=== PATIENT | female | born 1985 | race Caucasian/White ===

== ENCOUNTER → 2016-10-25 | Outpatient (CLI) | payer OTHER ==
[~2016-10-25] MED LIST: GADOBUTROL 10 ML VIAL IVP ONE
--- NOTE | 2016-10-25 18:34 | MR ---
MRI Abdomen, Without and With Contrast Indication: Indeterminate right adrenal gland nodule. Technique: Axial single shot fast spin echo, axial and coronal 2-D T2-weighted FIESTA, axial T1 dual echo, pre- and postcontrast dynamic T1 fat-suppressed LAVA imaging, and diffusion-weighted imaging i n the axial plane. 8 mL of Gadavist were uneventfully intravenously administered. Comparison: CT of the abdomen and pelvis dated January 25, 2016 Findings: The 1.8 x 1.4 cm round well-circumscribed right adrenal gland nodule homogeneously drops i n signal on the out of phase T1 sequence characteristic of a benign adrenal adenoma. The adenoma is u nchanged in size since January 2016. The left adrenal gland is normal. Three dependent hypointense gallstones have developed within the lumen of the gallbladder since January 17. No biliary dilation or common bile duct stone. The liver has normal signal and morphology. No he patic steatosis or focal liver lesion. The hepatic and portal venous system are patent. The normal-sized spleen, pancreas, kidneys, and bowel are normal. No hydronephrosis, free fluid, enla rged lymph node, or mass has developed. Posterior fusion hardware in the lumbar spine results in susc eptibility artifact. Bone marrow signal is normal. Impression: 1. Benign right adrenal gland adenoma is unchanged in size since January 2016. 2. New cholelithiasis. No choledocholithiasis, biliary obstruction or evidence of acute inflammation.
== END ==
LOC: FIMAGING 15:00
PROVIDERS: ATTEND Internal Medicine
DX: D35.01 Benign neoplasm of right adrenal gland (principal); K80.20 Calculus of gallbladder without cholecystitis without obstruction
CPT/HCPCS: 74183; A9585

== ENCOUNTER 2016-12-06 14:12 | Observation (INO) | payer OTHER ==
[2016-12-06] MEDS ORDERED: LIDOCAINE 1% 5 ML SDV ONE (14:52)
[2016-12-06] MEDS ORDERED: ceFAZolin 2 GM/DEXTROSE 100 ML IV ONE (15:00)
[2016-12-06 15:04] LABS: ADD DIFF? NO; ADD MORPH? NO
[2016-12-06] MEDS ORDERED: fentaNYL 100 MCG/2 ML INJ ONE ×5 (15:13→20:13)
[2016-12-06 15:14] LABS: ADD SCAN? NO
[2016-12-06 15:37] LABS: % IMMATURE GRANULYOCYTES 0.1 % (0.0-1.1); ABSOLUTE IMMATURE GRANULOCYTES 0.01 10^3/uL (0.00-0.10); ADD DIFF? NO; ADD MORPH? NO; ADD SCAN? NO; ATYPICAL LYMPHOCYTE FLAG 30 (0-99); FRAGMENT RBC FLAG 0 (0-99); HEMATOCRIT 41.7 % (38.0-47.0); LEFT SHIFT FLG 0 (0-99); LIPEMIA HEMOLYSIS FLAG 80 (0-99); MEAN CELL HEMOGLOBIN 29.4 pg (27.9-34.1); MEAN CELL HEMOGLOBIN CONCENTR. 33.6 g/dL (32.4-36.7); MEAN CELL VOLUME 87.4 fL (81.5-99.8); MEAN PLATELET VOLUME 11.5 fL (8.7-11.7); PLATELET CLUMPS FLAG 0 (0-99); PLATELET COUNT 231 10^3/uL (150-400); RED BLOOD CELL COUNT 4.77 10^6/uL (4.18-5.33); RED CELL DISTRIBUTION WIDTH 15.5 % (11.5-15.2)
[2016-12-06 16:05] LABS: ANION GAP 12 mEq/L (8-16); CALCIUM 9.3 mg/dL (8.5-10.4); CARBON DIOXIDE 21 mEq/l (22-31); CHLORIDE 108 mEq/L (97-110); CREATININE 0.8 mg/dL (0.6-1.0); GLOMERULAR FILTRATION RATE > 60; GLUCOSE 80 mg/dL (70-100); POTASSIUM 4.2 mEq/L (3.5-5.2); SODIUM 141 mEq/L (134-144)
[2016-12-06] MEDS ORDERED: BUPIVACAINE 0.5% 30 ML SDV ONE (16:43)
[2016-12-06] MEDS ORDERED: SKIN ADHESIVE (DERMABOND) 1 EACH TP ONE (16:43)
[2016-12-06] MEDS ORDERED: PREGABALIN 150 MG CAP ONE (17:34)
[2016-12-06] MEDS ORDERED: morphINE SR 30 MG TAB PO ONE (18:00)
[2016-12-06] MEDS ORDERED: PREGABALIN 150 MG CAP PO ONE (18:00)
[2016-12-06] MEDS ORDERED: PROPOFOL/EMULSION 500 MG/50 ML BOTTLE IV ONE (18:41)
[2016-12-06] MEDS ORDERED: MIDAZOLAM 2 MG/2 ML VIAL ONE (18:42)
[2016-12-06 19:01] LABS: ALBUMIN 3.8 g/dL (3.5-5.0); BILIRUBIN,TOTAL 0.7 mg/dL (0.1-1.4); BILIRUBIN-CONJUGATED 0.4 mg/dL (0.0-0.5); BILIRUBIN-UNCONJUGATED 0.3 mg/dL (0.0-1.1)
[2016-12-06] MEDS ORDERED: SUGAMMADEX SODIUM 200 MG/2 ML VIAL IVP ONE (19:48)
[2016-12-06] MEDS ORDERED: HYDROmorphONE/DILAUDID 2 MG/ML INJ ONE (19:51)
--- NOTE | 2016-12-06 20:04 | POSTOPPROG ---
Post Op Note Date of Operation: 12/06/16 Surgeon: Elena Nathan Anesthesiologist: rodri Anesthesia: GET(General Endotracheal) Pre-op Diagnosis: symptomatic cholelithiasis Post-op Diagnosis: same Indication: 31 yo with symptomatic cholelithiasis Procedure: lap nilson Findings: no unusual Inf/Abcess present in the surg proc area at time of surgery?: No EBL: Minimal Specimen(s): gallbladder
[2016-12-06] MEDS ORDERED: HYDROCODONE/APAP 5/325 TAB PO PRN (20:06)
[2016-12-06] MEDS ORDERED: ONDANSETRON 4 MG/2 ML VIAL IVP PRN (20:06)
[2016-12-06] MEDS ORDERED: ONDANSETRON 4 MG/2 ML VIAL ONE (20:09)
[2016-12-06] MEDS ORDERED: HYDROmorphONE/DILAUDID 1 MG/ML SYR ONE (20:13)
--- NOTE | 2016-12-06 20:14 | GOP ---
[f rep st] OPERATIVE REPORT DATE OF OPERATION: 12/06/2016 SURGEON: Elena Nathan MD ANESTHESIA: General. ANESTHESIOLOGIST: Godfrey Patrick MD. PREOPERATIVE DIAGNOSIS: Symptomatic cholelithiasis. POSTOPERATIVE DIAGNOSIS: Symptomatic cholelithiasis. PROCEDURE PERFORMED: Laparoscopic cholecystectomy. FINDINGS: Gallstones within her gallbladder. The common bile duct was visualized and protected. SPECIMENS: Gallbladder. ESTIMATED BLOOD LOSS: 20 cc. INDICATIONS: The patient is a 31-year-old woman who has lost weight. Eating has become progressive ly more difficult. She has new onset gallstones and is symptomatic. DESCRIPTION OF PROCEDURE: The patient was brought into the operating room, placed supine on the tab le, and general anesthesia was administered. Her abdomen was prepped and draped in the usual steril e fashion. I infiltrated all sites with 0.5% Marcaine prior to making incisions. I made an incisio n at her umbilicus. I elevated it. I inserted the Veress needle. It passed the hanging drop test. Her abdomen insufflated easily to a pressure of 15 mmHg. I placed a 5 mm trocar with a camera at this site. Under direct vision, I placed a 10 mm subxiphoid trocar and two 5 mm trocars along the r ight costal margin. I lifted her gallbladder cephalad and laterally to expose the triangle of Calot . I carefully skeletonized the cystic artery and cystic duct so that they were the only 2 structure s directly entering the gallbladder. They were each singly clipped toward the gallbladder, doubly c lipped distally, and transected with scissors. The gallbladder was removed from the gallbladder fos sa with electrocautery. The gallbladder was placed in an EndoCatch bag and retrieved via the 10 mm trocar. Hemostasis was achieved on the liver bed with electrocautery and Seble. The abdomen was i nspected. No injuries noted. The clips were in satisfactory position. The ports were removed unde r direct vision. The abdomen allowed to desufflate. The fascia at the 10 mm trocar site was closed with 0 Vicryl. Skin closed with 4-0 Monocryl. Dermabond applied. She was awakened in the operati ng room, extubated, transferred to PACU in stable condition. /[id number]/MODL
[2016-12-06] MEDS ORDERED: D5W 1/2 NS W/ 20 KCl/L 1,000 ML IV SCH (20:15)
[2016-12-06 20:44] VITALS: RESP 16
[2016-12-06] MEDS: KETOROLAC 15 MG/1 ML SDV IVP SCH (22:26)
[2016-12-07] MEDS: KETOROLAC 15 MG/1 ML SDV IVP SCH ×2 (05:25→13:26)
[2016-12-07 07:31] VITALS: BP 121/76; PULSE 65; TEMP 98.3; O2SAT 93
[2016-12-07] MEDS ORDERED: BACLOFEN 10 MG TAB PO PRN (08:53)
[2016-12-07] MEDS ORDERED: oxyCODONE IR 15 MG TAB PO PRN (08:53)
[2016-12-07] MEDS ORDERED: ONDANSETRON DISINTEGRATING 4 MG TAB PO PRN (08:53)
[2016-12-07] MEDS ORDERED: NORETHINDRONE ETHINYL ESTRAD PO SCH (09:00)
[2016-12-07] MEDS ORDERED: morphINE SR 30 MG TAB PO SCH (09:00)
[2016-12-07] MEDS ORDERED: PREGABALIN 150 MG CAP PO SCH (09:00)
[2016-12-08] MEDS ORDERED: NORETHINDRONE ETHINYL ESTRAD PO SCH (09:00)
== END 2016-12-07 13:20 | disposition home or self-care (01) ==
LOC: F3E 14:12 → FOB 20:51
PROVIDERS: ADMIT Surgery; ATTEND Surgery
PROC: 0FT44ZZ Resection of Gallbladder, Percutaneous Endoscopic Approach (ICD-10-PCS; principal; 2016-12-06 16:00)
DX: K80.10 Calculus of gallbladder with chronic cholecystitis without obstruction (principal); R63.4 Abnormal weight loss; F17.210 Nicotine dependence, cigarettes, uncomplicated; M54.5 Low back pain; G89.29 Other chronic pain; N30.00 Acute cystitis without hematuria
CPT/HCPCS: 47562; 88304; J0690; J1170; J1885; J2250; J2405; J2704; J3010

== ENCOUNTER → 2016-12-06 | Outpatient (CLI) | payer OTHER | LOC: FIMAGING 11:57 | PROVIDERS: ATTEND Surgery | DX: K80.20 Calculus of gallbladder without cholecystitis without obstruction (principal); E27.9 Disorder of adrenal gland, unspecified ==

== ENCOUNTER 2017-05-28 09:49 | Emergency (ER) | payer OTHER ==
[2017-05-28 10:14] VITALS: RESP 16
[2017-05-28] MEDS ORDERED: NS 1,000 ML IV ONE ×2 (10:15→14:29)
[2017-05-28 10:16] VITALS: TEMP 98.6
--- NOTE | 2017-05-28 10:24 | CPEKG ---
Heart Rate: 66 RR Interval: 909 P-R Interval: 132 QRSD Interval: 100 QT Interval: 392 QTC Interval: 411 P Hallie: 43 QRS Hallie: 6 T Wave Hallie: 13 EKG Severity - NORMAL ECG - EKG Impression: SINUS RHYTHM Electronically Signed By: Prosper Zafar 30-May-2017 06:33:22
--- NOTE | 2017-05-28 10:28 | EDPHY ---
H & P Time Seen by Provider: 05/28/17 09:59 HPI/ROS: CHIEF COMPLAINT: Near-syncope HISTORY OF PRESENT ILLNESS: This is a 31-year-old female presents to the emergency department reporting that she has had multiple episodes over the last 2 weeks of near syncope. She describes standing and becoming diaphoretic, dizzy , lightheaded, with blacking out of her vision. Does not sound like she has had a full syncopal episode. No chest pain. Some shortness of breath with exertion. She also notes generalized weakness. Of note, the patient has been on opiates for many years and recently has started medical detox program. She is currently on a clonidine patch which was started 2 weeks ago. Even prior to her withdrawal treatment, she had ongoing issues with what sounds like orthostatic hypotension and reporting dizziness and near-syncope when standing or moving abruptly. Patient has a history of interstitial cystitis as well as chronic back pain for which she has been taking the opiate medications. Last dose of morphine was 2 days ago. No nausea or vomiting. Some diarrhea. No urinary complaints. No headache. REVIEW OF SYSTEMS: Aside from elements discussed in the HPI, a comprehensive 10-point review of systems was reviewed and is negative. PAST MEDICAL HISTORY: Interstitial cystitis, status post cholecystectomy. SOCIAL HISTORY: Here with her mother. Smokes marijuana. No alcohol use. No tobacco use. VITAL SIGNS Reviewed by me. Heart rate increases to 145 when standing and patient becomes diaphoretic and lightheaded. GENERAL: Well-developed, well-nourished, slightly tearful. HEENT: Atraumatic. Eyes: No icterus, no injection. Mouth: moist mucous membranes. No erythema or lesions. Neck: supple with no adenopathy. LUNGS: Clear to auscultation bilaterally, no wheezes, rhonchi or rales. CARDIAC: Regular rate and rhythm, no rubs, murmurs or gallops. ABDOMEN: Soft, nontender, nondistended, bowel sounds normal. BACK: No CVA tenderness. Mild midline back tenderness to palpation. EXTREMITIES: No trauma. No edema. Range of motion is normal throughout. NEURO: Alert and oriented, grossly nonfocal. Motor strength 5/5 in lower extremities. Sensation intact to light touch. SKIN: Warm and dry, no rash. PSYCHIATRIC: Normal mentation, no agitation. Smoking Status: Former smoker Constitutional: Initial Vital Signs Temperature (C) 37 C 05/28/17 09:56 Heart Rate 74 05/28/17 09:56 Respiratory Rate 16 05/28/17 09:56 Blood Pressure 119/70 05/28/17 09:56 O2 Sat (%) 95 05/28/17 09:56 O2 Delivery Mode Room Air Allergies/Adverse Reactions: bupropion HCl [From Wellbutrin] Allergy (Verified 05/28/17 10:01) codeine Allergy (Verified 05/28/17 10:01) gabapentin Allergy (Verified 05/28/17 10:01) scopolamine Allergy (Verified 05/28/17 10:01) Flushing sertraline HCl [From Zoloft] Allergy (Verified 05/28/17 10:01) Home Medications: Medication Instructions Recorded Baclofen [Baclofen 10 mg (*)] 10 mg PO TID PRN 12/06/16 Norethindrone-Ethinyl Estrad 1 each PO DAILY 12/06/16 [Nortrel 1-35 21 Tablet] Ondansetron Odt [Zofran Odt 4 mg 4 mg PO Q4H PRN 12/06/16 (*)] Pregabalin [Lyrica] 150 mg PO TID 12/06/16 morphINE SR [MS Contin/Oramorph SR 30 mg PO Q8H 12/06/16 30 mg (*)] oxyCODONE IR [Oxycodone Ir (*)] 15 mg PO Q8H PRN 12/06/16 Clonidine 05/28/17 Diazepam [Valium 5 MG (*)] 5 mg PO BID PRN #12 tab 05/28/17 Medical Decision Making ED Course/Re-evaluation: 31-year-old female presents to the emergency department with near syncope. Patient has been detoxing from chronic opiate addiction and was given a clonidine patch. Sounds like she has some issues with orthostatic hypotension prior as well. On examination, the patient becomes quite tachycardic with standing, heart rate up to 145 with some dizziness. Her clonidine patch was removed. Patient received a L of normal saline. CBC and electrolytes are largely unremarkable. Troponin was negative. Urine tox screen demonstrates opiates, patient's last morphine was 3 days ago, benzodiazepines, patient uses Valium intravaginal for bladder spasm and interstitial cystitis, and marijuana which the patient reports using. On re-examination at 1130, patient reports increasing pain in her back. Patient received a lidocaine patch, Toradol IV, Decadron IV, ketamine IV. She is allergic to the gabapentin. She also received Valium by mouth for muscle spasms. Patient has an appointment with her pain medication doctor tomorrow who was managing her opiate withdrawal. She understands the importance of not using the clonidine patch as I fear that this is related to her significant tachycardia and near syncopal events. She will continue to use baclofen and Flexeril for her back pain. She will use ibuprofen as well as lidocaine patches for back pain. She was given a short prescription of Valium to use intravaginally for interstitial cystitis. She has Zofran at home for nausea. At discharge, patient no longer becomes tachycardic with standing. Heart rate goes from 60 lying to 80 standing. Blood pressure remained stable. Differential Diagnosis: Differential diagnosis for the patient's near syncope was considered including but not limited to medication effect, vasovagal syncope, dehydration, blood loss , arrhythmias. - Data Points Laboratory Results: Laboratory Results 05/28/17 10:30 05/28/17 10:30 05/28/17 05/28/17 05/28/17 11:00 10:30 10:30 WBC RBC Hgb Hct MCV MCH MCHC RDW Plt Count MPV Neut % (Auto) Lymph % (Auto) Darke % (Auto) Eos % (Auto) Baso % (Auto) Nucleat RBC Rel Count Absolute Neuts (auto) Absolute Lymphs (auto) Absolute Monos (auto) Absolute Eos (auto) Absolute Basos (auto) Absolute Nucleated RBC Immature Gran % Immature Gran # Sodium 142 mEq/L mEq/L (134-144) Potassium 3.9 mEq/L mEq/L (3.5-5.2) Chloride 110 mEq/L mEq/L (97-110) Carbon Dioxide 22 mEq/l mEq/l (22-31) Anion Gap 10 mEq/L mEq/L (8-16) BUN 8 mg/dL mg/dL (7-23) Creatinine 0.8 mg/dL mg/dL (0.6-1.0) Estimated GFR > 60 Glucose 103 mg/dL H mg/dL (70-100) Calcium 9.2 mg/dL mg/dL (8.5-10.4) Troponin I < 0.012 ng/mL ng/mL (0.000-0.034) Lipase 51 IU/L IU/L (23-300) Beta HCG, Qual NEGATIVE Urine Opiates Screen NON-NEGATIVE H (NEGATIVE) Urine Barbiturates NEGATIVE (NEGATIVE) Ur Phencyclidine Scrn NEGATIVE (NEGATIVE) Ur Amphetamine Screen NEGATIVE (NEGATIVE) U Benzodiazepines Scrn NON-NEGATIVE H (NEGATIVE) Urine Cocaine Screen NEGATIVE (NEGATIVE) U Marijuana (THC) Screen NON-NEGATIVE H (NEGATIVE) 05/28/17 10:30 WBC 8.31 10^3/uL 10^3/uL (3.80-9.50) RBC 4.88 10^6/uL 10^6/uL (4.18-5.33) Hgb 14.3 g/dL g/dL (12.6-16.3) Hct 42.7 % % (38.0-47.0) MCV 87.5 fL fL (81.5-99.8) MCH 29.3 pg pg (27.9-34.1) MCHC 33.5 g/dL g/dL (32.4-36.7) RDW 14.9 % % (11.5-15.2) Plt Count 234 10^3/uL 10^3/uL (150-400) MPV 11.4 fL fL (8.7-11.7) Neut % (Auto) 73.5 % % (39.3-74.2) Lymph % (Auto) 21.4 % % (15.0-45.0) Darke % (Auto) 3.7 % L % (4.5-13.0) Eos % (Auto) 0.2 % L % (0.6-7.6) Baso % (Auto) 0.8 % % (0.3-1.7) Nucleat RBC Rel Count 0.0 % % (0.0-0.2) Absolute Neuts (auto) 6.10 10^3/uL 10^3/uL (1.70-6.50) Absolute Lymphs (auto) 1.78 10^3/uL 10^3/uL (1.00-3.00) Absolute Monos (auto) 0.31 10^3/uL 10^3/uL (0.30-0.80) Absolute Eos (auto) 0.02 10^3/uL L 10^3/uL (0.03-0.40) Absolute Basos (auto) 0.07 10^3/uL 10^3/uL (0.02-0.10) Absolute Nucleated RBC 0.00 10^3/uL 10^3/uL (0-0.01) Immature Gran % 0.4 % % (0.0-1.1) Immature Gran # 0.03 10^3/uL 10^3/uL (0.00-0.10) Sodium Potassium Chloride Carbon Dioxide Anion Gap BUN Creatinine Estimated GFR Glucose Calcium Troponin I Lipase Beta HCG, Qual Urine Opiates Screen Urine Barbiturates Ur Phencyclidine Scrn Ur Amphetamine Screen U Benzodiazepines Scrn Urine Cocaine Screen U Marijuana (THC) Screen Medications Given: Discontinued Medications Dexamethasone (Decadron Injection) 8 mg IVP EDNOW ONE Stop: 05/28/17 11:38 Last Admin: 05/28/17 12:34 Dose: 8 mg Diazepam (Valium) 5 mg PO EDNOW ONE Stop: 05/28/17 11:38 Last Admin: 05/28/17 12:42 Dose: 5 mg Sodium Chloride (Ns) 1,000 mls @ 0 mls/hr IV EDNOW ONE; Wide Open PRN Reason: Protocol Stop: 05/28/17 10:16 Last Admin: 05/28/17 10:45 Dose: 1,000 mls Sodium Chloride (Ns) 1,000 mls @ 0 mls/hr IV ONCE ONE PRN Reason: Wide Open Stop: 05/28/17 14:30 Last Admin: 05/28/17 12:30 Dose: 1,000 mls Ketamine HCl (Ketamine) 14 mg 0.2 mg/kg (14 mg) IVP EDNOW ONE Stop: 05/28/17 11:38 Last Admin: 05/28/17 12:36 Dose: 14 mg Ketorolac Tromethamine (Toradol) 15 mg IVP EDNOW ONE Stop: 05/28/17 11:38 Last Admin: 05/28/17 12:35 Dose: 15 mg Lidocaine (Lidoderm 5%) 1 ea TD EDNOW ONE Stop: 05/28/17 11:38 Last Admin: 05/28/17 12:41 Dose: 1 ea Departure - Departure Disposition: Home, Routine, Self-Care Clinical Impression: Back pain, lumbosacral, Interstitial cystitis, Near syncope Condition: Good Instructions: Near Syncope (ED), Chronic Back Pain (ED) Additional Instructions: 1. For your back pain, please obtain lidocaine patches [id number]. These are 4%. I also recommend Ibuprofen (Motrin, Advil) or Naproxen Sodium (Aleve) for pain and anti-inflammatory effects. You may take either one, but do not take both. Your dose is: Ibuprofen 600 mg every 6-8 hours with food. OR Naproxen Sodium (Aleve) 220 mg every 12 hours. 2. I did provide a prescription for Valium. You may use this as needed for severe muscle spasm in her back as well as for bladder spasm from your interstitial cystitis. You must tell your pain medication doctor about this prescription. 3. Okay to use Zofran as needed for any nausea related to opiate withdrawals. 4. Do not reapplied the clonidine patches. I believe they are what has made you be so lightheaded and weak and almost fainting. Referrals: Kwame Quiroz MD [Primary Care Provider] - As per Instructions Prescriptions: Diazepam [Valium 5 MG (*)] 5 mg PO BID PRN #12 tab PRN Reason: Spasms
[2017-05-28 10:45] LABS: % IMMATURE GRANULYOCYTES 0.4 % (0.0-1.1); ABSOLUTE IMMATURE GRANULOCYTES 0.03 10^3/uL (0.00-0.10); ADD DIFF? NO; ADD MORPH? NO; ADD SCAN? NO; ATYPICAL LYMPHOCYTE FLAG 20 (0-99); FRAGMENT RBC FLAG 0 (0-99); HEMATOCRIT 42.7 % (38.0-47.0); HEMOGLOBIN 14.3 g/dL (12.6-16.3); LEFT SHIFT FLG 0 (0-99); LIPEMIA HEMOLYSIS FLAG 80 (0-99); MEAN CELL HEMOGLOBIN 29.3 pg (27.9-34.1); MEAN CELL HEMOGLOBIN CONCENTR. 33.5 g/dL (32.4-36.7); MEAN CELL VOLUME 87.5 fL (81.5-99.8); MEAN PLATELET VOLUME 11.4 fL (8.7-11.7); PLATELET CLUMPS FLAG 0 (0-99); PLATELET COUNT 234 10^3/uL (150-400); RED BLOOD CELL COUNT 4.88 10^6/uL (4.18-5.33); RED CELL DISTRIBUTION WIDTH 14.9 % (11.5-15.2)
[2017-05-28 10:56] LABS: ANION GAP 10 mEq/L (8-16); CALCIUM 9.2 mg/dL (8.5-10.4); CARBON DIOXIDE 22 mEq/l (22-31); CHLORIDE 110 mEq/L (97-110); CREATININE 0.8 mg/dL (0.6-1.0); GLOMERULAR FILTRATION RATE > 60; GLUCOSE 103 mg/dL (70-100); POTASSIUM 3.9 mEq/L (3.5-5.2); SODIUM 142 mEq/L (134-144)
[2017-05-28 11:09] LABS: TROPONIN I < 0.012 ng/mL (0.000-0.034)
[2017-05-28] MEDS ORDERED: LIDOCAINE 5% 1 EA PATCH TD ONE (11:37)
[2017-05-28] MEDS ORDERED: DIAZEPAM 5 MG TAB PO ONE (11:37)
[2017-05-28] MEDS ORDERED: KETAMINE 100 MG/10 ML SYR IVP ONE (11:37)
[2017-05-28] MEDS ORDERED: KETOROLAC 15 MG/1 ML SDV IVP ONE (11:37)
[2017-05-28] MEDS ORDERED: DEXAMETHASONE 4 MG/ML VIAL IVP ONE (11:37)
[2017-05-28 14:10] VITALS: BP 103/69
[2017-05-28 14:34] VITALS: O2SAT 96
[2017-05-28 14:36] VITALS: PULSE 60
[2017-05-28] MEDS ORDERED: PATCH REMOVAL 1 EA PATCH TD SCH (21:00)
== END 2017-05-28 14:10 | disposition home or self-care (01) ==
LOC: CED 09:49
DX: R55 Syncope and collapse (principal); N30.10 Interstitial cystitis (chronic) without hematuria; E86.9 Volume depletion, unspecified; Z87.891 Personal history of nicotine dependence
CPT/HCPCS: 93005; 96361; 96374; 99284; J1100; J1885; 80048-PO; 80307-PO; 83690-PO; 84484-PO; 84703-PO; 85025-PO

== ENCOUNTER 2017-05-29 14:50 | Emergency (ER) | payer OTHER ==
[2017-05-29] MEDS ORDERED: LIDOCAINE 5% 1 EA PATCH TD ONE (15:37)
[2017-05-29] MEDS ORDERED: DIAZEPAM 5 MG TAB PO ONE (15:51)
[2017-05-29] MEDS ORDERED: LIDOCAINE 2% JELLY 5 ML TUBE TP ONE (15:51)
[2017-05-29] MEDS ORDERED: PHENAZOPYRIDINE HCL 200 MG TAB PO ONE (16:03)
[2017-05-29 16:05] LABS: COLOR YELLOW; LEUKOCYTE ESTERASE,URINE NEGATIVE (NEGATIVE); NITRITE,URINE NEGATIVE (NEGATIVE)
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
[2017-05-29 17:30] VITALS: BP 128/75; PULSE 87; RESP 18; TEMP 98.6; O2SAT 98
[2017-05-29] MEDS ORDERED: PATCH REMOVAL 1 EA PATCH TD SCH (21:00)
[2017-05-30] MEDS ORDERED: LIDOCAINE 5% 1 EA PATCH TD SCH (09:00)
== END 2017-05-29 17:29 | disposition home or self-care (01) ==
LOC: CED 14:50
DX: F11.23 Opioid dependence with withdrawal (principal); G47.00 Insomnia, unspecified; M54.5 Low back pain; G89.29 Other chronic pain; Z87.891 Personal history of nicotine dependence
CPT/HCPCS: 81003-PO

== ENCOUNTER 2017-05-30 00:04 | Emergency (ER) | payer OTHER ==
[2017-05-30 00:33] VITALS: BP 119/72; PULSE 81; RESP 16; TEMP 98.2; O2SAT 97
[2017-05-30 00:44] LABS: COLOR YELLOW; LEUKOCYTE ESTERASE,URINE 1+ (NEGATIVE); NITRITE,URINE NEGATIVE (NEGATIVE)
[2017-05-30 00:47] LABS: MUCUS TRACE /lpf (NONE-1+); RBC,URINE 15-25 /hpf (0-3)
--- NOTE | 2017-05-30 01:17 | EDPHY ---
H & P Stated Complaint: UTI symptoms, lower abd pain Time Seen by Provider: 05/30/17 00:27 HPI/ROS: Chief Complaint: Bladder pain HPI: 31-year-old woman with a history of interstitial cystitis and chronic bladder pain, chronic back pain is presenting complaining of bladder pain and opioid withdrawal symptoms. Patient states she has been decreasing her opioids for the last several weeks in the attempt to discontinue use. Patient states that she last had opioids 4 days ago. She states that she has been having her usual bladder pain is presenting for evaluation. She was seen at the [facility] Emergency Department for the last 2 days. There she was given some nausea for sleep, Valium for withdrawal symptoms and other treatments. Patient also states that she was seen by her pain management doctor yesterday and was given naltrexone which caused her an adverse reaction and prompted her presentation to [facility]. Today she is requesting further care treatment and evaluation of her pain. ROS: 10 point Review of Systems is negative except as noted in the HPI. PMH: Interstitial cystitis, chronic back pain, opioid dependence Social History: No smoking, no alcohol, no recreational drug use Family History: non-contributory Physical Exam: Gen: Awake, Alert, uncomfortable appearing HEENT: Nose: no rhinorrhea Eyes: PERRLA, EOMI Mouth: Moist mucosa Neck: Supple, no JVD Chest: nontender, lungs clear to auscultation Heart: S1, S2 normal, no murmur Abd: Soft, moderate suprapubic tenderness, no guarding Back: no CVA tenderness, no midline tenderness Ext: no edema, non-tender Skin: no rash Neuro: CN II-XII intact, Sensation grossly intact, Strength 5/5 in bilateral upper and lower extremities - Personal History LMP (Females 10-55): Extended Cycle BCP/Inj Current Tetanus/Diphtheria Vaccine: Unsure Current Tetanus Diphtheria and Acellular Pertussis (TDAP): Unsure Tetanus Vaccine Date: < 10 years - Medical/Surgical History Hx Asthma: No Hx Chronic Respiratory Disease: No Hx Diabetes: No Hx Cardiac Disease: No Hx Renal Disease: No Hx Cirrhosis: No Hx Alcoholism: No Hx HIV/AIDS: No Hx Splenectomy or Spleen Trauma: No Other PMH: interstitial cystitis ,cholecystectomy. pinched nerve in back, L5- S1 FUSION SURGERY. tonsilectomy, fibromyalgia, arthritis. Chronic pain pain mgmt - Social History Smoking Status: Former smoker Constitutional: Initial Vital Signs Temperature (C) 36.8 C 05/30/17 00:17 Heart Rate 81 05/30/17 00:17 Respiratory Rate 16 05/30/17 00:17 Blood Pressure 119/72 05/30/17 00:17 O2 Sat (%) 97 05/30/17 00:17 O2 Delivery Mode Room Air Allergies/Adverse Reactions: bupropion HCl [From Wellbutrin] Allergy (Verified 05/30/17 00:20) codeine Allergy (Verified 05/30/17 00:20) gabapentin Allergy (Verified 05/30/17 00:20) scopolamine Allergy (Verified 05/30/17 00:20) Flushing sertraline HCl [From Zoloft] Allergy (Verified 05/30/17 00:20) Home Medications: Medication Instructions Recorded Baclofen [Baclofen 10 mg (*)] 10 mg PO TID PRN 12/06/16 Norethindrone-Ethinyl Estrad 1 each PO DAILY 12/06/16 [Nortrel 1-35 21 Tablet] Ondansetron Odt [Zofran Odt 4 mg 4 mg PO Q4H PRN 12/06/16 (*)] Pregabalin [Lyrica] 150 mg PO TID 12/06/16 Diazepam [Valium 5 MG (*)] 5 mg PO BID PRN #12 tab 05/28/17 Diazepam [Valium 5 MG (*)] 5 - 10 mg PO TID PRN #15 tab 05/29/17 Lidocaine 5% [Lidoderm 5% Patch 1 ea TD DAILY #20 patch 05/29/17 (*)] Zaleplon [Sonata] 10 mg PO HS PRN #18 capsule 05/29/17 Medical Decision Making ED Course/Re-evaluation: Patient presenting with cystitis type pain and opioid withdrawal. She is requesting admission to the hospital for her withdrawal symptoms. Her vital signs are normal. She has been given medications for both her withdrawal symptoms and for sleep. I have informed her that there are no indications for acute inpatient admission for opioid withdrawal at this time, especially as she has a pain management doctor as been given medications at the [facility] Emergency Department. I have told her that I do not intend on giving her any narcotics today. I have offered to give her Pyridium for her bladder spasm pain, she is refusing this. I have also offered to give her antibiotics to treat a possible cystitis, she is refusing these as well. I suggested that she follow up with her primary care physician in her pain management doctor for further treatment options but she seems resistant to this. I have told her that I feel that the best course of action for her to get appropriate treatment is to continue follow up with her pain management doctor for symptomatic care. Patient indicated she wanted no further treatment emergency department by leaving. - Data Points Laboratory Results: 05/30/17 00:20 Urine Color YELLOW Urine Appearance HAZY Urine pH 5.0 (5.0-7.5) Ur Specific [place] 1.021 (1.002-1.030) Urine Protein NEGATIVE (NEGATIVE) Urine Ketones NEGATIVE (NEGATIVE) Urine Blood 2+ H (NEGATIVE) Urine Nitrate NEGATIVE (NEGATIVE) Urine Bilirubin NEGATIVE (NEGATIVE) Urine Urobilinogen 2.0 EU H EU (0.2-1.0) Ur Leukocyte Esterase 1+ H (NEGATIVE) Urine RBC 15-25 /hpf H /hpf (0-3) Urine WBC 5-10 /hpf H /hpf (0-3) Ur Epithelial Cells TRACE /lpf /lpf (NONE-1+) Urine Mucus TRACE /lpf /lpf (NONE-1+) Urine Glucose NEGATIVE (NEGATIVE) Departure - Departure Disposition: Home, Routine, Self-Care Clinical Impression: Cystitis Condition: Good Instructions: Opioid Withdrawal (ED), Interstitial Cystitis (ED) Additional Instructions: Continue taking the medications prescribed you for your opioid withdrawal. I encouraged her to follow up with your primary care physician in 1-2 days for further evaluation of your cystitis and your ongoing opioid withdrawal. I also encouraged to return to your pain management doctor for further treatment for your opioid withdrawal. [facility] can also provided with resources in assistance in managing your withdrawal symptoms. Referrals: Kwame Quiroz MD [Primary Care Provider] - As per Instructions
== END 2017-05-30 01:23 | disposition home or self-care (01) ==
LOC: EDUNIT#
DX: N30.90 Cystitis, unspecified without hematuria (principal); Z87.891 Personal history of nicotine dependence; Z90.49 Acquired absence of other specified parts of digestive tract